=== PATIENT | female | born 1935 | race Caucasian/White ===

== ENCOUNTER → 2024-11-15 14:25 | Outpatient (CLI) | payer MEDICARE, BC, SELFPAY ==
--- NOTE | ~2024-11-15 | XR_ITS ---
EXAMINATION: XR chest 2V DATE: 11/15/2024 14:51 INDICATION: Acute cough. TECHNIQUE: Frontal and lateral views of the chest were obtained. COMPARISON: None. FINDINGS: There are airspace opacities in the lower lobes. Calcified lung nodules and calcified hilar and mediastinal lymph nodes are consistent with old granulomatous disease. No pleural effusion or pn eumothorax. The heart size is normal. IMPRESSION: 1. Airspace opacities in the lower lobes, consistent with pneumonia. Reviewed, dictated and finalized at location A. 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
== END ==
PROVIDERS: PCP Physician Assistant; Visit Provider Physician Assistant
DX: R05.1 Acute cough (principal); R91.8 Other nonspecific abnormal finding of lung field
CPT/HCPCS: 71046

== ENCOUNTER → 2024-11-27 10:18 | Outpatient (CLI) | payer MEDICARE, BC, SELFPAY ==
--- NOTE | ~2024-11-27 | XR_ITS ---
Clinical Indication: Pneumonia PA and lateral views of the chest: Comparison: 11/15/2024 Findings: Patchy right lower lobe airspace disease present. Left lung clear. Cardiomediastinal silho uette is within normal limits. Bones and soft tissues are unremarkable. Impression: Right lower lobe pneumonia is similar in appearance to prior exam. Reviewed, dictated and finalized at [facility]. MANAGER Impression: Right lower lobe pneumonia is similar in appearance to prior exam.
== END ==
LOC: EXPCRAD 10:21
PROVIDERS: PCP Nurse Practitioner Family; Visit Provider Nurse Practitioner Family
DX: J18.9 Pneumonia, unspecified organism (principal)
CPT/HCPCS: 71046

== ENCOUNTER → 2024-12-10 16:44 | Outpatient (CLI) | payer MEDICARE, BC, SELFPAY ==
--- NOTE | ~2024-12-10 | XR_ITS ---
CHEST RADIOGRAPH, PA AND LATERAL CLINICAL HISTORY: J18.9 PNEUMONIA FOLLOW UP . COMPARISON: 11/27/2024 and 11/15/2024 TECHNIQUE: PA and lateral views of the chest. FINDINGS The cardiomediastinal silhouette is unremarkable. Trace improved aeration of the right lower lobe when compared with prior examinations. Interstitial t hickening remains as does bronchiectasis within the bilateral pulmonary loni. IMPRESSION: Trace improved aeration of the right lower lobe compared with prior examinations. If clinical suspicion persists, cross-sectional imaging (noncontrast enhanced CT examination of the c hest) is suggested for further evaluation (rather than additional plain film evaluation of the chest. Reviewed, dictated and finalized at location A. 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 If clinical suspicion persists, cross-sectional imaging (noncontrast enhanced C T examination of the chest) is suggested for further evaluation (rather than ad ditional plain film evaluation of the chest.
== END ==
LOC: EXPCRAD 16:49
PROVIDERS: PCP Physician Assistant; Visit Provider Physician Assistant
DX: J18.9 Pneumonia, unspecified organism (principal)
CPT/HCPCS: 71046